=== PATIENT | female | born 1935 | race Caucasian/White ===

== ENCOUNTER 2021-06-18 16:34 | Observation (INO) ==
[2021-06-18 17:34] LABS: Basophils # (auto) 0.01 K/uL (0-0.2); Basophils % (auto) 0.1 %; Eosinophils # (auto) 0.03 K/uL (0-0.5); Eosinophils % (auto) 0.3 %; Hematocrit (blood only) 43.1 % (37-47); Hemoglobin 14.3 g/dL (12.0-16.0); Immature Granulocytes # (auto) 0.03 K/uL (0.00-0.02); Immature Granulocytes % (auto) 0.3 %; Lymphocytes # (auto) 0.63 K/uL (1.2-3.4); Lymphocytes % (auto) 7.3 %; Mean Corpuscular Hemoglobin 32.6 pg (25-34); Mean Corpuscular Hgb Conc 33.2 g/dL (32-36); Mean Corpuscular Volume 98.2 fL (80-100); Mean Platelet Volume 11.5 fL (7.4-10.4); Monocytes # (auto) 0.16 K/uL (0.11-0.59); Monocytes % (auto) 1.8 %; Neutrophils # (auto) 7.81 K/uL (1.4-6.5); Neutrophils % (auto) 90.2 %; Platelet Count 166 K/uL (130-400); RDW Standard Deviation 50.2 fL (36.4-46.3); Red Blood Count 4.39 M/uL (4.2-5.4); White Blood Count 8.67 K/uL (4.8-10.8)
--- NOTE | 2021-06-18 17:46 | Emergency Department Note ---
Impression & Plan Bradycardia, Lyme disease, Frequent PVCs ED Provider Note NAME: JOSH CELIS AGE: 86 SEX: F : 1935 ARRIVES VIA: Walk-In INFORMANT: [Patient] ED PROVIDER(S): [Noah Gooden MD] CHIEF COMPLAINT: Bradycardia HISTORY OF PRESENT ILLNESS: The patient is an 86-year-old female who came from the pain clinic. She was there for an injection and her heart rate was noted to be in the 30s and 40s. She has no history of coronary disease or bradycardia. She presents for evaluation. The patient has noticed fatigue and weakness lately, especially with any kind of exertion. No shortness of breath, no chest pain. She did start gabapentin 5 weeks ago but has otherwise been on no different medications. She just feels somewhat fragile. There has been no cough or congestion. No known tick bites. No urinary complaints. She is vaccinated against COVID-19. REVIEW OF SYSTEMS: See HPI for pertinent positives and negatives. A total of ten systems were reviewed and were otherwise negative. PMHx/PSHx: See Below SOCIAL HISTORY: See Below. PHYSICAL EXAM: GENERAL: Patient is in no acute distress. HEENT: No acute trauma, normocephalic atraumatic, mucous membranes moist, no nasal congestion, no scleral icterus. NECK: No stridor, no adenopathy, no meningismus, trachea is midline. LUNGS: Clear to auscultation bilaterally, no wheeze, no rhonchi, breath sounds equal. HEART: 2/6 systolic murmur, irregular rhythm, bradycardic. ABDOMEN: Soft, nontender, bowel sounds positive, no hernias, no peritonitis. EXTREMITIES: No cyanosis or edema, full range of motion of all the joints without pain or difficulty, no signs for acute trauma. NEUROLOGIC: Oriented x 3, no acute motor or sensory deficits, no focal weakness. SKIN: No rash, no jaundice, no diaphoresis. DIFFERENTIAL DIAGNOSIS: Heart block, dysrhythmia, PACs, PVCs, thyroid disorder, medication reaction, KS, anemia, Lyme disease, among others. EMERGENCY DEPARTMENT COURSE/PROCEDURES: ECG: Indication was bradycardia and weakness. The ECG shows a sinus rhythm with frequent PVCs. The rate is 64. There is no ST elevation. The QTc is 425. Continuous Cardiac Monitoring: An order was placed for continuous cardiac monitoring. The monitor shows a rate of 43 with sinus bradycardia with PVCs. MEDICAL DECISION MAKING: There is no leukocytosis or concerning anemia. There is a normal platelet count. No significant electrolyte abnormality or kidney failure. No concerning liver enzyme elevation. The patient appears to be in a euthyroid state. ECG shows a sinus rhythm with frequent PVCs, no ST elevation. Cardiac enzyme testing x1 is not consistent with acute cardiac injury. Lyme disease is equivocally positive for IgM. Chest film does not show pneumonia or CHF. Covid testing returned negative. Patient presents with bradycardia. Her heart rate was documented in the 30s at the pain management clinic. A hospital stay is warranted. Cardiac monitoring is warranted. This all actually may be from Lyme disease. I did speak with cardiology. I talked over the case with cardiology Case management has been involved. The on-call hospitalist was consulted. The zach cathi is aware of all her findings. Of note, I did order for 1 g of IV ceftriaxone to start treatment for potential Lyme disease. Past Med/Surg History Medical History Hypertension Social History Smoking Status: Never smoker Feels Safe at Home: Yes Allergies Allergies Allergy/AdvReac Type Severity Reaction Status Date / Time No Known Allergies Allergy Verified 06/18/21 17:43 Home Meds Home Medications Medication Instructions Recorded Confirmed Prevagen Tablet 1 tab PO DAILY 06/18/21 06/18/21 amlodipine 5 mg tablet 5 mg PO DAILY 06/18/21 06/18/21 cholecalciferol (vitamin D3) 25 25 mcg PO DAILY 06/18/21 06/18/21 mcg (1,000 unit) capsule (Vitamin D3) gabapentin 100 mg capsule See Rx Instructions .ROUTE .COMPLEX 06/18/21 06/18/21 glucosamine-chondroitin 250 mg-200 1 tab PO DAILY 06/18/21 06/18/21 mg tablet (Osteo Bi-Flex) levothyroxine 88 mcg tablet 88 mcg PO DAILY 06/18/21 06/18/21 losartan 100 mg tablet 100 mg PO DAILY 06/18/21 06/18/21 syyziskb-tvv-kasqz acid 0.4 1 tab PO DAILY 06/18/21 06/18/21 mg-lycopene 300 mcg-lutein 250 mcg tablet (Centrum Silver) omeprazole 40 mg capsule,delayed 40 mg PO DAILY 06/18/21 06/18/21 release oxybutynin chloride 5 mg tablet 5 mg PO DAILY 06/18/21 06/18/21 zolpidem 5 mg tablet 5 mg PO HS PRN 06/18/21 06/18/21 Results & Data (ED) Vital Signs Vital Signs - 24 hr 06/18/21 16:38 06/18/21 16:57 06/18/21 17:00 Temperature 36.6 C Temperature Source Oral Pulse Rate 43 L 71 66 Pulse Rate [Apical] Pulse Rate from SpO2 Sensor Respiratory Rate 18 17 15 Respiratory Effort / Characteristics Respiratory Depth Blood Pressure 147/86 H 148/58 H Blood Pressure [Left Arm] Blood Pressure Mean 106 88 Blood Pressure Mean [Left Arm] Pulse Oximetry 98 96 97 Oxygen Delivery Method Room Air Sepsis Recent Fever Within 48 Hours No Sepsis New/Unexplained Change in Mental Status No Sepsis Action Taken by Nursing No Action Required 06/18/21 17:02 06/18/21 17:30 06/18/21 18:00 Temperature Temperature Source Pulse Rate 71 72 Pulse Rate [Apical] 68 Pulse Rate from SpO2 Sensor Respiratory Rate 16 20 22 Respiratory Effort / Characteristics Non-Labored Respiratory Depth Normal Blood Pressure Blood Pressure [Left Arm] 120/70 Blood Pressure Mean Blood Pressure Mean [Left Arm] 86 Pulse Oximetry 98 97 96 Oxygen Delivery Method Sepsis Recent Fever Within 48 Hours Sepsis New/Unexplained Change in Mental Status Sepsis Action Taken by Nursing 06/18/21 18:30 Temperature Temperature Source Pulse Rate 64 Pulse Rate [Apical] Pulse Rate from SpO2 Sensor 61 Respiratory Rate 24 Respiratory Effort / Characteristics Respiratory Depth Blood Pressure Blood Pressure [Left Arm] Blood Pressure Mean Blood Pressure Mean [Left Arm] Pulse Oximetry 95 Oxygen Delivery Method Sepsis Recent Fever Within 48 Hours Sepsis New/Unexplained Change in Mental Status Sepsis Action Taken by Care Home Medications Current Medication List: was personally reviewed by me Laboratory Data Attestation: I reviewed the patient's lab results. Result diagrams: 06/18/21 16:55 06/18/21 16:55 Lab Results 06/18/21 06/18/21 06/18/21 Range/Units 16:55 16:55 17:40 WBC 8.67 (4.8-10.8) K/uL RBC 4.39 (4.2-5.4) M/uL Hgb 14.3 (12.0-16.0) g/dL Hct 43.1 (37-47) % MCV 98.2 (80-100) fL MCH 32.6 (25-34) pg MCHC 33.2 (32-36) g/dL RDW Std Deviation 50.2 H (36.4-46.3) fL RDW Coeff of Alden 14.0 (11.5-14.5) % Plt Count 166 (130-400) K/uL MPV 11.5 H (7.4-10.4) fL Immature Gran % (Auto) 0.3 % Neut % (Auto) 90.2 % Lymph % (Auto) 7.3 % Edwards % (Auto) 1.8 % Eos % (Auto) 0.3 % Baso % (Auto) 0.1 % Neut # (Auto) 7.81 H (1.4-6.5) K/uL Lymph # (Auto) 0.63 L (1.2-3.4) K/uL Edwards # (Auto) 0.16 (0.11-0.59) K/uL Eos # (Auto) 0.03 (0-0.5) K/uL Baso # (Auto) 0.01 (0-0.2) K/uL Immature Gran # (Auto) 0.03 H (0.00-0.02) K/uL Sodium 139 (136-145) mmol/L Potassium 4.1 (3.5-5.1) mmol/L Chloride 108 H (98-107) mmol/L Carbon Dioxide 25 (21-32) mmol/L Anion Gap 6.0 (3-11) BUN 29 H (7-18) mg/dl Creatinine 0.84 (0.6-1.2) mg/dl Est Cr Clr Drug Dosing 38.7 ml/min Est GFR ( Amer) 73.5 ml/min Est GFR (Non-Af Amer) 63.4 ml/min BUN/Creatinine Ratio 34.4 H (10-20) Glucose 157 H (70-99) mg/dl Calcium 9.1 (8.5-10.1) mg/dl Phosphorus 2.6 (2.5-4.9) mg/dl Magnesium 2.2 (1.8-2.4) mg/dl Total Bilirubin 0.5 (0.2-1) mg/dl AST 17 (15-37) U/L ALT 23 (12-78) U/L Alkaline Phosphatase 58 (45-117) U/L Troponin I < 0.015 (0-0.045) ng/ml Total Protein 7.4 (6.4-8.2) gm/dl Albumin 3.5 (3.4-5.0) gm/dl Globulin 3.9 (2.5-4.0) gm/dl Albumin/Globulin Ratio 0.9 (0.9-2) TSH 0.424 (0.300-4.500) uIu/ml Lyme Disease IgG Ab Negative (Negative) Lyme Disease IgM Ab Equivocal A (Negative) COVID-19 Eval Order SARS-CoV-2 (PCR) (Negative) 06/18/21 06/18/21 Range/Units 18:11 18:11 WBC (4.8-10.8) K/uL RBC (4.2-5.4) M/uL Hgb (12.0-16.0) g/dL Hct (37-47) % MCV (80-100) fL MCH (25-34) pg MCHC (32-36) g/dL RDW Std Deviation (36.4-46.3) fL RDW Coeff of Alden (11.5-14.5) % Plt Count (130-400) K/uL MPV (7.4-10.4) fL Immature Gran % (Auto) % Neut % (Auto) % Lymph % (Auto) % Edwards % (Auto) % Eos % (Auto) % Baso % (Auto) % Neut # (Auto) (1.4-6.5) K/uL Lymph # (Auto) (1.2-3.4) K/uL Edwards # (Auto) (0.11-0.59) K/uL Eos # (Auto) (0-0.5) K/uL Baso # (Auto) (0-0.2) K/uL Immature Gran # (Auto) (0.00-0.02) K/uL Sodium (136-145) mmol/L Potassium (3.5-5.1) mmol/L Chloride (98-107) mmol/L Carbon Dioxide (21-32) mmol/L Anion Gap (3-11) BUN (7-18) mg/dl Creatinine (0.6-1.2) mg/dl Est Cr Clr Drug Dosing ml/min Est GFR ( Amer) ml/min Est GFR (Non-Af Amer) ml/min BUN/Creatinine Ratio (10-20) Glucose (70-99) mg/dl Calcium (8.5-10.1) mg/dl Phosphorus (2.5-4.9) mg/dl Magnesium (1.8-2.4) mg/dl Total Bilirubin (0.2-1) mg/dl AST (15-37) U/L ALT (12-78) U/L Alkaline Phosphatase (45-117) U/L Troponin I (0-0.045) ng/ml Total Protein (6.4-8.2) gm/dl Albumin (3.4-5.0) gm/dl Globulin (2.5-4.0) gm/dl Albumin/Globulin Ratio (0.9-2) TSH (0.300-4.500) uIu/ml Lyme Disease IgG Ab (Negative) Lyme Disease IgM Ab (Negative) COVID-19 Eval Order Covid19 at [facility] SARS-CoV-2 (PCR) NEGATIVE (Negative) Imaging Data Radiologist's Impression: Chest X-Ray 06/18/21 17:18 SINGLE VIEW CHEST CLINICAL HISTORY: Bradycardia FINDINGS: An AP, portable, upright chest radiograph is obtained. No prior studies are available for comparison at the time of dictation. The heart is top normal for projection noting atherosclerotic calcification of the thoracic aorta. Nonspecific interstitial thickening is likely chronic. There is mild elevation of the left hemidiaphragm with associated left basilar scarring/atelectasis. No airspace consolidation or large pleural effusion is identified. No pneumothorax is seen. The skeletal structures are osteopenic. Degenerative change and scoliosis is seen in the thoracic spine. There are numerous healed right-sided rib fractures. IMPRESSION: No acute cardiopulmonary abnormality. ACT 112: Negative or not required by law. Electronically signed by: Noah Hayward M.D. 06/18/2021 5:54 PM Discharge Plan Visit Data Chief Complaint: Bradycardia Stated Complaint: LOW HEART RATE AFTER RECIEVING PAIN INJECTION ED Provider: Noah Gooden ED Midlevel Provider: Kwabena Hamilton Discharge Problem: Bradycardia, Lyme disease, Frequent PVCs Patient Disposition: Admitted As Inpatient Condition: Fair Forms Stand Alone Forms: My [facility] Prescriptions Prescriptions: No Action amlodipine 5 mg tablet 5 mg PO DAILY RF: 0 omeprazole 40 mg capsule,delayed release(DR/EC) 40 mg PO DAILY RF: 0 levothyroxine 88 mcg tablet 88 mcg PO DAILY RF: 0 zolpidem 5 mg tablet 5 mg PO HS PRN (Reason: Sleep) RF: 0 gabapentin 100 mg capsule See Rx Instructions .ROUTE .COMPLEX RF: 0 oxybutynin chloride 5 mg tablet 5 mg PO DAILY RF: 0 losartan 100 mg tablet 100 mg PO DAILY RF: 0 cholecalciferol (vitamin D3) [Vitamin D3] 25 mcg (1,000 unit) Capsule 25 mcg PO DAILY RF: 0 glucosamine-chondroitin [Osteo Bi-Flex] 250-200 mg Tablet 1 tab PO DAILY RF: 0 Centrum Silver 0.4-300-250 mg-mcg-mcg Tablet 1 tab PO DAILY RF: 0 Prevagen Tablet 1 tab PO DAILY RF: 0 Referrals Referrals: Senthil Fuentes [Primary Care Provider] -
[2021-06-18 17:54] LABS: Alanine Aminotransferase 23 U/L (12-78); Albumin Level 3.5 gm/dl (3.4-5.0); Aspartate Aminotransferase 17 U/L (15-37); BUN Creatinine Ratio 34.4 (10-20); Blood Urea Nitrogen 29 mg/dl (7-18); Calcium 9.1 mg/dl (8.5-10.1); Carbon Dioxide 25 mmol/L (21-32); Chloride 108 mmol/L (98-107); Creatinine Clr Calc Pharmacy 38.7 ml/min; Est GFR (African American) 73.5 ml/min; Est GFR (Non-African American) 63.4 ml/min; Glucose 157 mg/dl (70-99); Magnesium 2.2 mg/dl (1.8-2.4); Potassium 4.1 mmol/L (3.5-5.1); Sodium 139 mmol/L (136-145)
--- NOTE | 2021-06-18 17:56 | XRay Report ---
SINGLE VIEW CHEST CLINICAL HISTORY: Bradycardia FINDINGS: An AP, portable, upright chest radiograph is obtained. No prior studies are available for c omparison at the time of dictation. The heart is top normal for projection noting atherosclerotic ca lcification of the thoracic aorta. Nonspecific interstitial thickening is likely chronic. There is mi ld elevation of the left hemidiaphragm with associated left basilar scarring/atelectasis. No airspace consolidation or large pleural effusion is identified. No pneumothorax is seen. The skeletal structu res are osteopenic. Degenerative change and scoliosis is seen in the thoracic spine. There are jeremy us healed right-sided rib fractures. IMPRESSION: No acute cardiopulmonary abnormality. ACT 112: Negative or not required by law. Electronically signed by: Noah Hayward M.D. 06/18/2021 5:54 PM
[2021-06-18 18:04] LABS: Albumin Globulin Ratio 0.9 (0.9-2); Alkaline Phosphatase 58 U/L (45-117); Bilirubin,Total 0.5 mg/dl (0.2-1); Globulin 3.9 gm/dl (2.5-4.0); Phosphorus 2.6 mg/dl (2.5-4.9); Thyroid Stimulating Hormone 0.424 uIu/ml (0.300-4.500); Total Protein 7.4 gm/dl (6.4-8.2); Troponin I < 0.015 ng/ml (0-0.045)
[2021-06-18 19:03] LABS: Lyme Ab IgG w/WB Rflx Negative (Negative)
[2021-06-18 19:04] LABS: Lyme Ab IgM w/WB Rflx Equivocal (Negative)
[2021-06-18] MEDS ORDERED: cefTRIAXone SODIUM 1,000 MG/50 ML BAG IV STA ×2 (19:06→21:33)
--- NOTE | 2021-06-18 19:40 | History & Physical Report ---
Date of Service June 18, 2021 Assessment & Plan (1) Bradycardia: Plan: 86 y/o female w/ PMHx of osteoarthritis and lumbar spinal fusion who presents for asymptomatic bradycardia and acute on chronic bilat lower extremity weakness. Not weak on my exam. - bradycardia is intermittent; no conduction delay on ecg - considered Lyme and sick sinus syndrome. Less likely ACS (will trend trop), autonomic dysfunction (e.g. secondary to Parkinson's which patient has no personal of family hx of). - defer echo at this time - consult cardiology in AM (2) Lower extremity weakness: Plan: -considered tick-borne, myopathy, spinal stenosis - no focal neuro deficits. No personal or fhx of NC, stroke, VTE, DM, neuro, seizure, or autoimmune disease. Denies confusion, memory issues, speech deficits. No fam hx of parkinsons. - lower suspicion for Guillain [place] as she has not had recent viral illness and weakness location has been consistent x months w/o ascending - reviewed electrolytes - TSH low normal, less likely contributor - lower suspicion for malignancy - no imaging at this time - hold home sedating medications - check B12/folate, CK - PT/OT (3) Lyme disease: Plan: - indeterminate IgM. bands pending. - will treat as presumed positive possibly contributing to the bradycardia; IV Rocephin 2g daily - add tick borne smear (4) Urinary incontinence: Plan: - chronic, stable. continue home oxybutynin (5) Decreased visual acuity: Plan: - x 2 months, bilateral - outpatient f/u w/ optometry Plan: FEN/GI: regular diet. no IVF ppx: Lovenox code: full dispo: med/surg tele PT/OT History of Present Illness Chief Complaint: bradycardia Primary Care Provider: Senthil Fuentes Abbey Thorpe is an 86 y/o female w/ PMHx of osteoarthritis and lumbar spinal fusion who was sent from outpatient [place] pain clinic this afternoon (2-3pm) for bradycardia to 30s noticed at end of visit; she had been receiving hip glucorticoid injection. Per patient, her HR at clinical arrival was not bradycardic, but her end of visit vitals showed mitchell was down to 30s. Patient denied any symptoms at that time. Currently, patient feels well and denies any pain. Ruth Ann's other complaint is that since her mechanical fall (slipped and had 3 resultant rib fractures) in January 2021, she has had bilateral lower extremity weakness, without myalgia or arthralgia. Her prior baseline was active, inclu ding gardening and working in long term). The LE weakness (hip down to feet) is affecting her gait and makes her feel wobbly and take slow careful steps though she has not had actual falls from. Denies recent illness. Patient has also had fatigue and physical deconditioning since the fall in January. She notes that her symptoms were slowly improving except while on vacation 3 wks ago, the LE weakness has worsened and stayed weaker since. Has some fatigue and deconditioning since fall. Main complaint is bilat LE wkness, no myalgia or arthralgia. Denies room-spinning or near syncopal sensation. Physically, she is still able to walk and balance on foot. Symptoms worsen w/ wearing shoes w/ foot arch or uneven surface. Denies hand tremor. Denies tick exposure, fever, or rash. Undergoing grief/stress from loss of son last wk, otherwise denies palpitations. 27 lb wt loss since November 2020, attributes to decreased sense of taste after covid vaccine. Surgical hx: May 2017 L5-S1 spinal fusion. reviewed 2017 mri report: multilevel mild-mod foraminal stenosis, but no mention of severe stenosis ED course: started on IV ceftriaxone. Lyme IgM equivocal. ecg: rate 64. PACs. Afebrile. Telemetry at ED arrival sinus mitchell 43 w/ PVCs. Allergies Allergy/AdvReac Type Severity Reaction Status Date / Time No Known Allergies Allergy Verified 06/18/21 17:43 Home Medications Medication Instructions Recorded Confirmed Type Prevagen Tablet 1 tab PO DAILY 06/18/21 06/18/21 History amlodipine 5 mg tablet 5 mg PO DAILY 06/18/21 06/18/21 History cholecalciferol (vitamin D3) 25 25 mcg PO DAILY 06/18/21 06/18/21 History mcg (1,000 unit) capsule (Vitamin D3) gabapentin 100 mg capsule See Rx Instructions .ROUTE .COMPLEX 06/18/21 06/18/21 History glucosamine-chondroitin 250 mg-200 1 tab PO DAILY 06/18/21 06/18/21 History mg tablet (Osteo Bi-Flex) levothyroxine 88 mcg tablet 88 mcg PO DAILY 06/18/21 06/18/21 History losartan 100 mg tablet 100 mg PO DAILY 06/18/21 06/18/21 History nfemlmpy-inh-iltwz acid 0.4 1 tab PO DAILY 06/18/21 06/18/21 History mg-lycopene 300 mcg-lutein 250 mcg tablet (Centrum Silver) omeprazole 40 mg capsule,delayed 40 mg PO DAILY 06/18/21 06/18/21 History release oxybutynin chloride 5 mg tablet 5 mg PO DAILY 06/18/21 06/18/21 History zolpidem 5 mg tablet 5 mg PO HS PRN 06/18/21 06/18/21 History doxycycline hyclate 100 mg capsule 100 mg PO BID 21 Days #42 cap 06/19/21 Rx Past Med/Surg History Medical History Hypertension Social History Smoking Status: Never smoker Hx Alcohol Use: No Hx Substance Use: No Preferred Language: Portuguese [employer] Required: No Beliefs That Will Affect Care: None Current Living Situation: Spouse Current Living Situation Comment: Home w/ . Feels Safe at Home: Yes Assistive Devices: Cane and Walker Review of Systems Review of Systems: All systems reviewed & are unremarkable except as noted in HPI & below Constitutional: Denies fever, chills, weight change Eyes: Has some myopia symptoms while watching TV, denies blurry; x 2 months. opto apt in july. ENT: Denies sore throat, sinus pain Cardiovascular: Denies chest pain, palpitations Respiratory: Denies shortness of breath Gastrointestinal: Denies abdominal pain, nausea, vomiting, diarrhea. intermittent constipation since November 2020, attributes to decreased PO intake. Genitourinary: Denies urinary symptoms including dysuria. + chronic incontinence x 5 years. Musculoskeletal: Unsure cause/specifically what her generalized wkness is affecting. Neurological: Denies headache. Some numbness in L thing down leg, not new, attributes to back surgery 2016, though didn't bother her until last 8 months at night; pcp started her on gabapentin much relief. Integ: denies rash. Physical Exam Physical Exam: General: A&Ox4. NAD. Cooperative. HEENT: Atraumatic, normocephalic. EOMI. MMM. Neck supple. Pulm: CTAB. -wheezes, -rales, -rhonchi. No respiratory distress. Cardiac: RRR, could hear pvcs, -mrg. Radial pulses intact and symmetrical. No LE edema. Abdominal: Nontender, nondistended, soft. Back: Moderate L lumbar paraspinal TTP. Neg SLR bilat. Msk: Moving all extremities. Integ: Warm, dry, intact Neuro: L lat thigh down to foot has altered sensation to touch. Strength of all 4 extremities intact. 2+ patellar reflexes. No dysmetria. Normal heel-perez test. Romberg. Gait appears careful, in small steps. Speech is not slow Results & Data Results & Data ([facility]) Vital Signs (Past 12 Hours) Vital Signs Temp Pulse Pulse Resp BP BP Pulse Ox 06/18/21 18:30 64 24 95 06/18/21 18:00 72 22 96 06/18/21 17:30 71 20 97 06/18/21 17:02 68 16 120/70 98 06/18/21 17:00 66 15 148/58 H 97 06/18/21 16:57 71 17 96 06/18/21 16:38 36.6 C 43 L 18 147/86 H 98 Laboratory Results labs: cbc wnl; Hb 14.3. electrolytics wnl. Cr 0.84. BUN/Cr 34.4H. Mg, phos, liver enzymes wnl. trop neg x1. tsh 0.424. lyme IgM equivocal, bands pending. cxr no acute 06/18/21 16:55 06/18/21 16:55 Cardiac Enzymes 06/18/21 Range/Units 16:55 AST 17 (15-37) U/L Troponin I < 0.015 (0-0.045) ng/ml CBC 06/18/21 Range/Units 16:55 WBC 8.67 (4.8-10.8) K/uL RBC 4.39 (4.2-5.4) M/uL Hgb 14.3 (12.0-16.0) g/dL Hct 43.1 (37-47) % Plt Count 166 (130-400) K/uL Neut # (Auto) 7.81 H (1.4-6.5) K/uL Lymph # (Auto) 0.63 L (1.2-3.4) K/uL [place] # (Auto) 0.16 (0.11-0.59) K/uL Eos # (Auto) 0.03 (0-0.5) K/uL Baso # (Auto) 0.01 (0-0.2) K/uL Comprehensive Metabolic Panel 06/18/21 Range/Units 16:55 Sodium 139 (136-145) mmol/L Potassium 4.1 (3.5-5.1) mmol/L Chloride 108 H (98-107) mmol/L Carbon Dioxide 25 (21-32) mmol/L BUN 29 H (7-18) mg/dl Creatinine 0.84 (0.6-1.2) mg/dl Glucose 157 H (70-99) mg/dl Calcium 9.1 (8.5-10.1) mg/dl AST 17 (15-37) U/L ALT 23 (12-78) U/L Alkaline Phosphatase 58 (45-117) U/L Total Protein 7.4 (6.4-8.2) gm/dl Albumin 3.5 (3.4-5.0) gm/dl Intake and Output 06/18/21 06/18/21 06/18/21 06:59 14:59 22:59 Other: Weight 54.7 kg Weight Measurement Method Chair Scale Patient Weight 06/19/21 06:59 Weight 54.7 kg Diagnostic Findings Chest X-Ray 06/18/21 17:18 SINGLE VIEW CHEST CLINICAL HISTORY: Bradycardia FINDINGS: An AP, portable, upright chest radiograph is obtained. No prior studies are available for comparison at the time of dictation. The heart is top normal for projection noting atherosclerotic calcification of the thoracic aorta. Nonspecific interstitial thickening is likely chronic. There is mild elevation of the left hemidiaphragm with associated left basilar scarring/atelectasis. No airspace consolidation or large pleural effusion is identified. No pneumothorax is seen. The skeletal structures are osteopenic. Degenerative change and scoliosis is seen in the thoracic spine. There are numerous healed right-sided rib fractures. IMPRESSION: No acute cardiopulmonary abnormality. ACT 112: Negative or not required by law. Electronically signed by: Noah Hayward M.D. 06/18/2021 5:54 PM Code Status & VTE Plan Code Status full VTE Prophylaxis Plan VTE Prophylaxis will be ordered: Yes Supervising Physician Co-Signing Physician Notes Attending addendum: I have physically seen this patient, have supervised the medical residents activities, and agree with the H&P unless as otherwise noted. Assessment and Plan: Bradycardia- The patient will be admitted to telemetry for serial cardiac enzymes, serial EKG's, cardiac rhythm monitoring and a 2-D echocardiogram with Dopplers. Not on any negative inotropes Monitor for sick sinus syndrome Treat Lyme disease empirically Lyme disease- Equivocal IgM Treat with ceftriaxone IV 2 g daily, and doxycycline 100 mg p.o. twice daily Assess for babesiosis and anaplasmosis as well Lower extremity weakness- May be associated with above 2 diagnoses No suggestion of lumbar disease or Guillain-Rob Metabolic work-up as noted Consult PT/OT Remaining orders and notations as noted Resident Activity Tracking Resident Involvement: Resident Care Provided Care Provided: Adult Hospital Medicine
[2021-06-18] MEDS ORDERED: GABAPENTIN 300 MG CAP PO STA (21:33)
[2021-06-18] MEDS ORDERED: ALUMINUM/MAGNESIUM SUSP 30 ML UDC PO PRN (22:38)
[2021-06-18] MEDS ORDERED: ACETAMINOPHEN 325 MG TAB PO PRN (22:38)
[2021-06-18] MEDS ORDERED: POLYETHYLENE (MIRALAX) 17 GM PACK PO PRN (22:38)
[2021-06-18] MEDS ORDERED: ZOLPIDEM TARTRATE 5 MG TAB PO PRN (23:18)
[2021-06-19] MEDS ORDERED: ENOXAPARIN INJ 30 MG/0.3 ML SYR SQ SCH (06:00)
[2021-06-19] MEDS ORDERED: LEVOTHYROXINE SODIUM 88 MCG TABLET PO SCH (06:30)
[2021-06-19 08:15] LABS: Eosinophils # (auto) 0.01 K/uL (0-0.5); Eosinophils % (auto) 0.2 %; Hematocrit (blood only) 40.6 % (37-47); Hemoglobin 13.7 g/dL (12.0-16.0); Lymphocytes # (auto) 0.73 K/uL (1.2-3.4); Lymphocytes % (auto) 14.1 %; Mean Corpuscular Hemoglobin 32.2 pg (25-34); Mean Corpuscular Hgb Conc 33.7 g/dL (32-36); Mean Corpuscular Volume 95.5 fL (80-100); Mean Platelet Volume 10.8 fL (7.4-10.4); Monocytes # (auto) 0.44 K/uL (0.11-0.59); Monocytes % (auto) 8.5 %; Neutrophils # (auto) 4.01 K/uL (1.4-6.5); Neutrophils % (auto) 77.2 %; Platelet Count 174 K/uL (130-400); RDW Standard Deviation 49.4 fL (36.4-46.3); Red Blood Count 4.25 M/uL (4.2-5.4); White Blood Count 5.19 K/uL (4.8-10.8)
[2021-06-19 08:49] LABS: Albumin Level 3.5 gm/dl (3.4-5.0); BUN Creatinine Ratio 34.9 (10-20); Calcium 9.3 mg/dl (8.5-10.1); Creatinine Clr Calc Pharmacy 39.2 ml/min; Est GFR (African American) 74.5 ml/min; Est GFR (Non-African American) 64.3 ml/min; Magnesium 2.2 mg/dl (1.8-2.4)
[2021-06-19 08:52] LABS: Albumin Globulin Ratio 0.9 (0.9-2); Bilirubin,Total 0.4 mg/dl (0.2-1); Globulin 3.8 gm/dl (2.5-4.0); Total Protein 7.3 gm/dl (6.4-8.2)
[2021-06-19] MEDS ORDERED: amLODIPine BESYLATE 5 MG TAB PO SCH (09:00)
[2021-06-19] MEDS ORDERED: PANTOprazole 40 MG TAB PO SCH (09:00)
[2021-06-19] MEDS ORDERED: LOSARTAN POTASSIUM 50 MG TAB PO SCH (09:00)
[2021-06-19] MEDS ORDERED: OXYBUTYNIN CHLORIDE 5 MG TAB PO SCH (09:00)
[2021-06-19 09:36] LABS: Folate (Folic Acid) > 20.00 ng/ml (>5.38); Vitamin B12 780 pg/ml (193-986)
--- NOTE | 2021-06-19 09:45 | Electrocardiogram Report ---
Test Reason : Blood Pressure : / mmHG Vent. Rate : 064 BPM Atrial Rate : 064 BPM P-R Int : 200 ms QRS Dur : 082 ms QT Int : 412 ms P-R-T Axes : 050 -01 022 degrees QTc Int : 425 ms Sinus rhythm with Premature atrial complexes with Aberrant conduction and PVCs Abnormal ECG No previous ECGs available Confirmed by Dev Mak ([id number] on 06/19/2021 9:45:18 AM Referred By: REFERRED SELF Confirmed By:Maximilian Mak
--- NOTE | 2021-06-19 10:51 | Cardiology Consultation ---
Date of Consultation June 19, 2021 Assessment & Plan (1) Bradycardia: I suspect the bradycardia noted on her monitoring was related to her frequent PVCs. He does not appear that she was hooked up to telemetry and no EKG was obtained. She does not appear to have been symptomatic from the PVCs or associated low heart rates. She is not describe symptoms consistent with symptomatic bradycardia at other times. She has a narrow complex QRS and seems to be at low risk for more advanced conduction disease. At this point, given the absence of symptoms I did not feel that any additional treatment was necessary. I do not believe there is a current indication for a pacemaker. I did speak to her daughter today. We discussed symptoms of which to be aware which would be dizziness, lightheadedness or syncope. (2) Frequent PVCs: Unclear etiology. Will obtain echocardiogram in order to exclude some structural heart disease. In the absence structural heart disease, this is likely a benign phenomenon that can be treated according to symptoms. History of Present Illness Reason for Consultation: Bradycardia Requesting Physician: Robert Attending Physician: Kwadwo Jones, History of Present Illness The patient is an 86-year-old woman without a known history of cardiac disease who was at a pain [facility] it yesterday. The patient received an injection in her right hip and was being monitored afterwards. The patient was noted on monitoring to have heart rates in the 30s and 40s. She was sent to the emergency room for evaluation. Patient cannot recall any specific symptoms associated with these recorded heart rates. The patient states that her hip injection was uneventful. She has had injections in the pain clinic before without incident. Upon reaching the emergency room the patient reportedly had normal heart rates on the monitor. She has been placed on telemetry monitoring overnight. Patient states she is normally an active individual. Unfortunately, a few weeks ago she did suffer a fall in her shower which resulted in some rib fractures. This has limited her activity recently. Prior to that she was active taking care of a lawn and garden. 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 She does not report significant symptoms associated with activity perhaps some unsteadiness when she wear certain shoes. She has not report limiting dyspnea. No exertional chest pain. She denied episodes of dizziness or lightheadedness including those associated with the recorded heart rates yesterday. She cannot recall suffering an episode of syncope. She has not been aware of palpitations. Recently she has been suffering with some depression regarding the of her son. She also feels that she is fragile. This is difficult to characterize, but appears to involve an element of weakness and unsteadiness. This morning patient was feeling quite well. Her hip pain has resolved. She has been ambulatory around the ye without significant symptom. Allergies Allergy/AdvReac Type Severity Reaction Status Date / Time No Known Allergies Allergy Verified 06/18/21 17:43 Home Medications Medication Instructions Recorded Confirmed Type Prevagen Tablet 1 tab PO DAILY 06/18/21 06/18/21 History amlodipine 5 mg tablet 5 mg PO DAILY 06/18/21 06/18/21 History cholecalciferol (vitamin D3) 25 25 mcg PO DAILY 06/18/21 06/18/21 History mcg (1,000 unit) capsule (Vitamin D3) gabapentin 100 mg capsule See Rx Instructions .ROUTE .COMPLEX 06/18/21 06/18/21 History glucosamine-chondroitin 250 mg-200 1 tab PO DAILY 06/18/21 06/18/21 History mg tablet (Osteo Bi-Flex) levothyroxine 88 mcg tablet 88 mcg PO DAILY 06/18/21 06/18/21 History losartan 100 mg tablet 100 mg PO DAILY 06/18/21 06/18/21 History hmecwizj-pom-yojnz acid 0.4 1 tab PO DAILY 06/18/21 06/18/21 History mg-lycopene 300 mcg-lutein 250 mcg tablet (Centrum Silver) omeprazole 40 mg capsule,delayed 40 mg PO DAILY 06/18/21 06/18/21 History release oxybutynin chloride 5 mg tablet 5 mg PO DAILY 06/18/21 06/18/21 History zolpidem 5 mg tablet 5 mg PO HS PRN 06/18/21 06/18/21 History Patient History Medical History Hypertension Social History Smoking Status: Never smoker Hx Alcohol Use: No Hx Substance Use: No Preferred Language: Yoruba Gm Video Required: No Beliefs That Will Affect Care: None Current Living Situation: Spouse Current Living Situation Comment: Home w/ . Other Information That Helps Us Care for You: No Feels Safe at Home: Yes Safety Concerns: Feels Safe At This Time Assistive Devices: Glasses Review of Systems Review of Systems: Per HPI Physical Exam Physical Exam: She is alert and oriented x3. Mood affect appear normal. She answered all questions appropriately. HEENT: Sclerae are anicteric. Pupils are equal and reactive to light and accommodation. Extraocular movements were intact. Neuro: Cranial nerves intact Lungs: Lungs are clear to auscultation bilaterally. There are no rales wheezes or rhonchi. She has normal respiratory effort without use of accessory muscles. There is normal pulmonary excursion. Cardiac: The rhythm was regular with occasional ectopy. S1 and S2 were normal. There are no murmurs on examination. The PMI was not markedly displaced on palpation. Extremities: Patient has bilateral radial pulses that are equal in intensity. There is no evidence cyanosis or clubbing. There was no evidence of significant peripheral edema bilaterally. Skin: There are no rashes noted on examination today. Results & Data ([facility]) Vital Signs (Past 12 Hours) Vital Signs Temp Pulse Pulse Resp BP Pulse Ox 06/19/21 07:49 36.7 C 58 L 16 160/62 H 98 06/19/21 03:30 36.6 C 60 18 113/61 96 06/18/21 23:24 89 Laboratory Results Abnormal Lab Results 06/18/21 06/18/21 06/18/21 16:55 16:55 16:55 WBC 8.67 RBC 4.39 Hgb 14.3 Hct 43.1 MCV 98.2 MCH 32.6 MCHC 33.2 RDW Std Deviation 50.2 H RDW Coeff of Alden 14.0 Plt Count 166 MPV 11.5 H Immature Gran % (Auto) 0.3 Neut % (Auto) 90.2 Lymph % (Auto) 7.3 [place] % (Auto) 1.8 Eos % (Auto) 0.3 Baso % (Auto) 0.1 Neut # (Auto) 7.81 H Lymph # (Auto) 0.63 L [place] # (Auto) 0.16 Eos # (Auto) 0.03 Baso # (Auto) 0.01 Immature Gran # (Auto) 0.03 H Sodium 139 Potassium 4.1 Chloride 108 H Carbon Dioxide 25 Anion Gap 6.0 BUN 29 H Creatinine 0.84 Est Cr Clr Drug Dosing 38.7 Est GFR ( Amer) 73.5 Est GFR (Non-Af Amer) 63.4 BUN/Creatinine Ratio 34.4 H Glucose 157 H Calcium 9.1 Phosphorus 2.6 Magnesium 2.2 Total Bilirubin 0.5 AST 17 ALT 23 Alkaline Phosphatase 58 Total Creatine Kinase Troponin I < 0.015 Total Protein 7.4 Albumin 3.5 Globulin 3.9 Albumin/Globulin Ratio 0.9 Vitamin B12 Folate TSH 0.424 Anaplasma Smear See Comment Babesia Smear See Comment Lyme Disease IgG Ab Lyme Disease IgM Ab COVID-19 Eval Order SARS-CoV-2 (PCR) 06/18/21 06/18/21 06/18/21 16:55 17:40 18:11 WBC RBC Hgb Hct MCV MCH MCHC RDW Std Deviation RDW Coeff of Alden Plt Count MPV Immature Gran % (Auto) Neut % (Auto) Lymph % (Auto) [place] % (Auto) Eos % (Auto) Baso % (Auto) Neut # (Auto) Lymph # (Auto) [place] # (Auto) Eos # (Auto) Baso # (Auto) Immature Gran # (Auto) Sodium Potassium Chloride Carbon Dioxide Anion Gap BUN Creatinine Est Cr Clr Drug Dosing Est GFR ( Amer) Est GFR (Non-Af Amer) BUN/Creatinine Ratio Glucose Calcium Phosphorus Magnesium Total Bilirubin AST ALT Alkaline Phosphatase Total Creatine Kinase 73 Troponin I Total Protein Albumin Globulin Albumin/Globulin Ratio Vitamin B12 Folate TSH Anaplasma Smear Babesia Smear Lyme Disease IgG Ab Negative Lyme Disease IgM Ab Equivocal A COVID-19 Eval Order Covid19 at [facility] SARS-CoV-2 (PCR) 06/18/21 06/19/21 06/19/21 18:11 00:37 07:59 WBC 5.19 RBC 4.25 Hgb 13.7 Hct 40.6 MCV 95.5 MCH 32.2 MCHC 33.7 RDW Std Deviation 49.4 H RDW Coeff of Alden 14.0 Plt Count 174 MPV 10.8 H Immature Gran % (Auto) 0.0 Neut % (Auto) 77.2 Lymph % (Auto) 14.1 [place] % (Auto) 8.5 Eos % (Auto) 0.2 Baso % (Auto) 0.0 Neut # (Auto) 4.01 Lymph # (Auto) 0.73 L [place] # (Auto) 0.44 Eos # (Auto) 0.01 Baso # (Auto) 0.00 Immature Gran # (Auto) 0.00 Sodium Potassium Chloride Carbon Dioxide Anion Gap BUN Creatinine Est Cr Clr Drug Dosing Est GFR ( Amer) Est GFR (Non-Af Amer) BUN/Creatinine Ratio Glucose Calcium Phosphorus Magnesium Total Bilirubin AST ALT Alkaline Phosphatase Total Creatine Kinase Troponin I < 0.015 Total Protein Albumin Globulin Albumin/Globulin Ratio Vitamin B12 Folate TSH Anaplasma Smear Babesia Smear Lyme Disease IgG Ab Lyme Disease IgM Ab COVID-19 Eval Order SARS-CoV-2 (PCR) NEGATIVE 06/19/21 06/19/21 07:59 07:59 WBC RBC Hgb Hct MCV MCH MCHC RDW Std Deviation RDW Coeff of Alden Plt Count MPV Immature Gran % (Auto) Neut % (Auto) Lymph % (Auto) [place] % (Auto) Eos % (Auto) Baso % (Auto) Neut # (Auto) Lymph # (Auto) [place] # (Auto) Eos # (Auto) Baso # (Auto) Immature Gran # (Auto) Sodium 139 Potassium 4.0 Chloride 108 H Carbon Dioxide 24 Anion Gap 7.0 BUN 29 H Creatinine 0.83 Est Cr Clr Drug Dosing 39.2 Est GFR ( Amer) 74.5 Est GFR (Non-Af Amer) 64.3 BUN/Creatinine Ratio 34.9 H Glucose 109 H Calcium 9.3 Phosphorus Magnesium 2.2 Total Bilirubin 0.4 AST 12 L ALT 18 Alkaline Phosphatase 49 Total Creatine Kinase Troponin I Total Protein 7.3 Albumin 3.5 Globulin 3.8 Albumin/Globulin Ratio 0.9 Vitamin B12 780 Folate > 20.00 TSH Anaplasma Smear Babesia Smear Lyme Disease IgG Ab Lyme Disease IgM Ab COVID-19 Eval Order SARS-CoV-2 (PCR) Diagnostic Findings Chest x-ray obtained the time admission not reveal any acute cardiopulmonary disease. ECG Additional Comments: EKG obtained the time admission revealed normal sinus rhythm with borderline 1st degree AV block, narrow complex QRS and frequent PVCs versus aberrantly conducted PACs. PG Care Time/CCT Total # of Minutes Spent Total Time Spent with Patient: Total time spent is greater than 50% in coordination of care (as documented) at patient's floor/unit and/or counseling patient: Coding Level of Care Code 83885 Office/OBS Consult Lvl 4 Diagnoses Bradycardia R00.1 Frequent PVCs I49.3
[2021-06-19] MEDS ORDERED: GABAPENTIN 100 MG CAP PO SCH (14:00)
[2021-06-19] MEDS ORDERED: cefTRIAXone SODIUM 2,000 MG in DEXTROSE 5% 50 ML IV SCH ×2 (14:00→20:00)
--- NOTE | 2021-06-19 17:51 | Communication Note ---
Date of Service: June 18, 2021 I saw the patient with Dr. Gooden, please see their note for details. Resident Activity Tracking Resident Involvement: Resident Care Provided Care Provided: Adult ED
--- NOTE | 2021-06-19 18:15 | Discharge Summary ---
Date of Service June 19, 2021 Admission HPI Per Admitting Provider Abbey Thorpe is an 86 y/o female w/ PMHx of osteoarthritis and lumbar spinal fusion who was sent from outpatient [place] [facility] this afternoon (2-3pm) for bradycardia to 30s noticed at end of visit; she had been receiving hip glucorticoid injection. Per patient, her HR at clinical arrival was not bradycardic, but her end of visit vitals showed mitchell was down to 30s. Patient denied any symptoms at that time. Currently, patient feels well and denies any pain. Ruth Ann's other complaint is that since her mechanical fall (slipped and had 3 resultant rib fractures) in January 2021, she has had bilateral lower extremity weakness, without myalgia or arthralgia. Her prior baseline was active, including gardening and working in [employer]). The LE weakness (hip down to feet) is affecting her gait and makes her feel wobbly and take slow careful steps though she has not had actual falls from. Denies recent illness. Patient has also had fatigue and physical deconditioning since the fall in January. She notes that her symptoms were slowly improving except while on vacation 3 wks ago, the LE weakness has worsened and stayed weaker since. Has some fatigue and deconditioning since fall. Main complaint is bilat LE wkness, no myalgia or arthralgia. Denies room-spinning or near syncopal sensation. Physically, she is still able to walk and balance on foot. Symptoms worsen w/ wearing shoes w/ foot arch or uneven surface. Denies hand tremor. Denies tick exposure, fever, or rash. Undergoing grief/stress from loss of son last wk, otherwise denies palpitations. 27 lb wt loss since November 2020, attributes to decreased sense of taste after covid vaccine. Surgical hx: May 2017 L5-S1 spinal fusion. reviewed 2017 mri report: multilevel mild-mod foraminal stenosis, but no mention of severe stenosis ED course: started on IV ceftriaxone. Lyme IgM equivocal. ecg: rate 64. PACs. Afebrile. Telemetry at ED arrival sinus mitchell 43 w/ PVCs. Principal Diagnosis Normal Sinus Rhythm with Frequent PVCs; Possible Lyme Disease Discharge Exam General: A&Ox4. NAD HEENT: Atraumatic, normocephalic. MMM. Neck supple. Pulm: CTA bilaterally in all lung suero. No respiratory distress/no accessory muscle use Cardiac: RRR no murmurs; no peripheral edema Abdominal: Nontender, nondistended, soft. Neuro: Strength of all 4 extremities intact; no focal neuro deficits Discharge Data Allergies Allergy/AdvReac Type Severity Reaction Status Date / Time No Known Allergies Allergy Verified 06/18/21 17:43 Consultations 06/18/21 19:18 ED Decision to Admit Stat 06/18/21 23:45 Consult Cardiology Routine Ordered Studies Chest X-Ray 06/18/21 17:18 SINGLE VIEW CHEST CLINICAL HISTORY: Bradycardia FINDINGS: An AP, portable, upright chest radiograph is obtained. No prior studies are available for comparison at the time of dictation. The heart is top normal for projection noting atherosclerotic calcification of the thoracic aorta. Nonspecific interstitial thickening is likely chronic. There is mild elevation of the left hemidiaphragm with associated left basilar scarring/atelectasis. No airspace consolidation or large pleural effusion is identified. No pneumothorax is seen. The skeletal structures are osteopenic. Degenerative change and scoliosis is seen in the thoracic spine. There are numerous healed right-sided rib fractures. IMPRESSION: No acute cardiopulmonary abnormality. ACT 112: Negative or not required by law. Electronically signed by: Noah Hayward M.D. 06/18/2021 5:54 PM Hospital Course (1) Frequent PVCs: - Ms. Thorpe was placed on monitor found to be in normal sinus rhythm with frequent PVCs. Average HR 60-70s and no symptoms of dizziness/lightheadedness. No indication for a pacemaker at this time - PVCs are of unclear etiology. Echo obtained and discussed with cardiology. Unable to upload the read into the system at time of discharge but findings did not warrant ongoing hospitalization and cleared for D/C from cardiology perspective - Pt did well with physical therapy without signs or symptoms of dizziness/lightheadedness/syncope - Dr. Mak would like to F/U with her in the outpatient setting for monitoring and ongoing recommendations (2) Lyme disease: - She was found to have equivocal positive IgM Ab and negative Ig G Ab for lyme with western blot pending -- Given only IgM is positive would suspect this is early stages and should not be influencing cardiac issues - Was given Rocephin 2 g IV daily in house - will convert to Doxycycline 100 mg BID x 21 days however research does suggest 10-14 days may be sufficient. Could stop sooner if western blot is unremarkable - Patient plans to stay with her daughter in [place]. [facility] - Follow-up with PCP and Dr. Mak Total Time Total Time Spent Total Time Spent (In Minutes): Spent greater than 30 minutes preparing patient for discharge. This includes discussion with patient/family, assessment, intervention, medication reconciliation, and coordination of care. Discharge Plan Discharge Items Patient Disposition: Home - Self-Care Reason For Visit: BRADYCARDIA Discharge Diagnosis: Normal Sinus Heart Rhythm with Premature Ventricular Contractions; Possible Lyme Disease Condition on Discharge: Good Activity: Resume your previous activity Non-emergency contact: Primary Care Provider Call non-emergency contact if: you have any medication questions, your symptoms worsen and you have a fever Follow-up/Referrals: Oscar Mak MD [Physician] - Senthil Fuentes [Primary Care Provider] - Diet: Regular Addtl Attending Provider Instructions: Low Heart Rate (Bradycardia): - You were admitted for low heart rates but it appears this is more consistent with frequent PVCs (premature ventricular contractions). When you have frequent PVCs it can cause machines to inaccurate read heart rates as it doesn't capture the rate accurately. - Thankfully while here your heart rates have averaged between 60-70s - While in the hospital we checked your thyroid hormone which was normal and cardiac markers called troponin which was normal to make sure this did not contribute the the heart rhythm - You were seen by Dr. Mak the germination worker who reviewed your rhythms while on the monitor. He would like to follow-up with you. -- His office number is on the discharge instructions and if you do not hear from his office, please call them Possible Lyme Disease: - You had a test for lyme while here and the one test is equivocally positive. This is not the most accurate test so we always send for the Western Blot which is the gold standard - Your IgM was elevated which is usually the first to rise in Lyme disease meaning you could have been exposed in the last couple weeks. The Ig G is negative and this one takes longer to rise...several weeks. So this could mean you have an acute episode of Lyme disease. - The western blot test should tell as more accurately if this is Lyme but takes a few days to come back and we can call you with the results - We will treat you for Lyme in the meantime until the confirmation is made. - You will start tomorrow. Doxycycline 100 mg twice a day for 21 days. More trials have shown a shorter course may be sufficient and you can discuss with your family doctor but will prescribe enough for the 21 days just in case - Continue to eat yogurt and can use an over the counter probiotic to keep the good bacteria in your GI tract while on antibiotics Pending Studies at Discharge: Yes Studies:: Western Blot for Lyme Disease Stand-Alone Forms: My [facility], Smoking Cessation Medications and DC Order Prescriptions: New doxycycline hyclate 100 mg capsule 100 mg PO BID 21 Days Qty: 42 RF: 0 Continued amlodipine 5 mg tablet 5 mg PO DAILY RF: 0 omeprazole 40 mg capsule,delayed release(DR/EC) 40 mg PO DAILY RF: 0 levothyroxine 88 mcg tablet 88 mcg PO DAILY RF: 0 zolpidem 5 mg tablet 5 mg PO HS PRN (Reason: Sleep) RF: 0 gabapentin 100 mg capsule See Rx Instructions .ROUTE .COMPLEX RF: 0 oxybutynin chloride 5 mg tablet 5 mg PO DAILY RF: 0 losartan 100 mg tablet 100 mg PO DAILY RF: 0 cholecalciferol (vitamin D3) [Vitamin D3] 25 mcg (1,000 unit) Capsule 25 mcg PO DAILY RF: 0 glucosamine-chondroitin [Osteo Bi-Flex] 250-200 mg Tablet 1 tab PO DAILY RF: 0 Centrum Silver 0.4-300-250 mg-mcg-mcg Tablet 1 tab PO DAILY RF: 0 Prevagen Tablet 1 tab PO DAILY RF: 0 Discharge Orders: Discharge Order (Routine); Ordered 06/19/21 Ordered By: Ava Hernández Admission Data Admit Date/Time: 06/18/21 21:56 Attending Provider: Kwadwo Jones Admit Provider: Harsh Wood Primary Care Provider: Senthil Fuentes Other Providers: Satinder Ramirez ; Oscar Mak. Other Interventions: Discharge Summary Assessment (RN) Last Done: 06/19/21 17:17 Coding Level of Care Code D/C DAY MANAGEMENT >30 MINS Diagnoses Frequent PVCs I49.3 Lyme disease A69.20
[2021-06-19] MEDS ORDERED: GABAPENTIN 300 MG CAP PO SCH (21:00)
--- NOTE | 2021-06-19 22:00 | Billing Data ---
Date of Service June 19, 2021 Coding Level of Care Code INT OBSERVATION CARE 70M LVL 3
--- NOTE | 2021-06-21 10:06 | XCELERA ---
[id number]
[2021-06-22 17:11] LABS: Babesia microti DNA Not Detected (Not Detected)
[2021-06-24 08:37] LABS: 18KDIGG Band NON-REACTIVE; 23KDIGG Band NON-REACTIVE; 23KDIGM Band NON-REACTIVE; 28KDIGG Band NON-REACTIVE; 30KDIGG Band NON-REACTIVE; 39KDIGG Band NON-REACTIVE; 39KDIGM Band NON-REACTIVE; 41KDIGG Band REACTIVE; 41KDIGM Band NON-REACTIVE; 45KDIGG Band NON-REACTIVE; 58KDIGG Band NON-REACTIVE; 66KDIGG Band NON-REACTIVE; 93KDIGG Band NON-REACTIVE; Lyme Antibodies, WB IgG NEGATIVE (NEGATIVE); Lyme Antibodies, WB IgM NEGATIVE (NEGATIVE)
== END 2021-06-19 17:45 | disposition home or self-care (01) ==
LOC: ED 16:34 → 2W 21:56 → INTOOBSV 21:56 → SUATTDRO 21:56 → 2W 22:13